=== PATIENT | male | born 1995 | race Caucasian/White ===

== ENCOUNTER 2019-08-11 13:35 | Emergency (ER) | payer OTHER ==
[~2019-08-11] VITALS: Ht 185.4 cm; Wt 97.5 kg
[2019-08-11 13:56] VITALS: BP 137/74
--- NOTE | 2019-08-11 14:01 | NUR ---
PT AMBULATED TO ER BED 02
--- NOTE | 2019-08-11 14:11 | NUR ---
23 YO MALE CO LEG INJURY FOR 1W. PT STATES THAT HE FELL AT WORK. REDNESS, SWELLING AND BRUISING PRESENT. PT CAN WALK ON AFFECTED LEG. PAIN IS 2/10 AT THIS TIME. NO PMH
[2019-08-11] MEDS ORDERED: ACETAMINOPHEN EXTRA STRENGTH 500 MG TAB PO ONE (14:35)
--- NOTE | 2019-08-11 15:08 | NUR ---
APPLIED KNEE IMMOBILIZER TO RIGHT KNEE WITHOUT ANY ISSUES
== END 2019-08-11 15:03 | disposition home or self-care (01) ==
LOC: MED 13:35
DX: S80.01XA Contusion of right knee, initial encounter (principal); M25.461 Effusion, right knee; W19.XXXA Unspecified fall, initial encounter; Y93.89 Activity, other specified; Y92.89 Other specified places as the place of occurrence of the external cause; Y99.8 Other external cause status
CPT/HCPCS: 29505; 73562; 99283; Q0092